=== PATIENT | male | born 1965 | race African-American/Black ===

== ENCOUNTER 2019-12-13 03:46 | Emergency (ER) | payer OTHER ==
[~2019-12-13] VITALS: Ht 182.9 cm; Wt 107.0 kg
[2019-12-13] MEDS ORDERED: TETRACAINE 0.5% OPHTH DROPS 4ML BOTHEYE ONE (06:30)
[2019-12-13] MEDS ORDERED: FLUORESCEIN SODIUM 1MG/STRIP BOTHEYE ONE (06:30)
[2019-12-13 07:30] VITALS: BP 120/74
== END 2019-12-13 07:51 | disposition home or self-care (01) ==
LOC: ER 04:08
DX: H10.89 Other conjunctivitis (principal); H57.89 Other specified disorders of eye and adnexa; I49.9 Cardiac arrhythmia, unspecified
CPT/HCPCS: 93005; 99283

== ENCOUNTER 2020-08-29 18:20 | Emergency (ER) | payer OTHER ==
[~2020-08-29] VITALS: Ht 188 cm; Wt 107.0 kg
[2020-08-29] MEDS ORDERED: ONDANSETRON HCL 4MG/2ML INJ IV STA (19:15)
[2020-08-29] MEDS ORDERED: MORPHINE SULFATE 4 MG/ML CPJ (NOT FOR IM USE) IV STA (19:15)
[2020-08-29] MEDS ORDERED: SODIUM CHLORIDE 0.9% 1,000 ML IV ONE (19:15)
[2020-08-29] MEDS ORDERED: COLC0.6C3 PO (19:33)
[2020-08-29] MEDS ORDERED: INDO50CA98 PO (19:33)
[2020-08-29 20:00] LABS: BASOPHILS % 0.4 % (0.0-2.0); HEMATOCRIT. 43.5 % (42.0-52.0); HEMOGLOBIN. 14.6 g/dL (14.0-18.0); LYMPHOCYTES % 33.4 % (20.0-50.0); MEAN CORPUSCULAR VOLUME 89.2 fL (80.0-94.0); MEAN PLATELET VOLUME 8.9 fl (7.4-10.4); MONOCYTES % 11.7 % (2.0-8.0); NEUTROPHILS % 53.5 % (40.0-76.0); PLATELET 211 x1000/uL (130-400); RED BLOOD CELL COUNT 4.88 mill/uL (4.7-6.1); RED CELL DISTRIBUTION WIDTH 13.7 % (11.6-14.6)
[2020-08-29 20:03] LABS: CHLORIDE 107 mEq/L (98-107)
[2020-08-29 20:58] VITALS: BP 122/84
== END 2020-08-29 20:29 | disposition home or self-care (01) ==
LOC: ER 18:20
DX: M1A.0610 Idiopathic chronic gout, right knee, without tophus (tophi) (principal)
CPT/HCPCS: 36415; 73560; 80053; 84550; 85025; 96361; 96374; 96375; 99284; J2270; J2405; J7030

== ENCOUNTER 2024-02-03 12:40 | Emergency (ER) | payer OTHER ==
[~2024-02-03] VITALS: Ht 182.9 cm; Wt 109.0 kg
[~2024-02-03 12:40] MED LIST: COLC0.6C3 PO; INDO50CA98 PO
[2024-02-03 12:41] VITALS: O2SAT 99
[2024-02-03] MEDS: HYDROCODONE/ACETAMINOPHEN 5/325MG TABLET PO ONE (13:11)
[2024-02-03] MEDS: KETOROLAC 30MG/ML VIAL IM ONE (13:11)
[2024-02-03] MEDS ORDERED: IBUP-2029 MT (14:35)
[2024-02-03] MEDS ORDERED: COLC0.6C3 PO (14:35)
[2024-02-03 16:34] VITALS: BP 118/69; PULSE 70; RESP 18; TEMP 36.89184; O2SAT 99
== END 2024-02-03 16:40 | disposition home or self-care (01) ==
LOC: ER 12:47
DX: M10.9 Gout, unspecified (principal)
CPT/HCPCS: 73562; 96372; 99283; J1885; Z7610 ×5